=== PATIENT | female | born 1960 | race Caucasian/White ===

== ENCOUNTER 2017-09-26 11:21 | Day surgery (SDC) | payer OTHER ==
[2017-09-26] MEDS ORDERED: LIDOCAINE 1% 2 ML INJ ID PRN (11:37)
[2017-09-26] MEDS ORDERED: LR 1,000 ML IV ONE (11:37)
[2017-09-26] MEDS ORDERED: ceFAZolin 2 GM/SWFI 2 GM/20 ML SYR IVP ONE (12:06)
[2017-09-26] MEDS ORDERED: BACITRACIN 50,000 UNITS/10 ML SYR IRR ONE (12:38)
[2017-09-26] MEDS ORDERED: LIDOCAINE 1% 300 MG/30 ML SDV ONE (12:38)
[2017-09-26] MEDS ORDERED: BUPIVACAINE 0.5% 30 ML SDV ONE (12:38)
[2017-09-26] MEDS ORDERED: MIDAZOLAM 2 MG/2 ML VIAL IVP ONE (12:53)
--- NOTE | 2017-09-26 12:53 | PDANEPAE ---
ANE History of Present Illness 57 yo for hw removal foot ANE Past Medical History - Cardiovascular History Hx Hypertension: No Hx Arrhythmias: No Hx Chest Pain: No Hx Coronary Artery / Peripheral Vascular Disease: No Hx CHF / Valvular Disease: No Hx Palpitations: No Cardiovascular History Comment: HX OF RHUEMATIC FEVER AT 9- CLEAN BILL OF HEALTH AT 20 YEARS OLD - Pulmonary History Hx COPD: No Hx Asthma/Reactive Airway Disease: No Hx Recent Upper Respiratory Infection: No Hx Oxygen in Use at Home: No Hx Sleep Apnea: No Sleep Apnea Screening Result - Last Documented: Negative - Neurologic History Hx Cerebrovascular Accident: No Hx Seizures: No Hx Dementia: No - Endocrine History Hx Diabetes: No Endocrine History Comment: HYPOACTIVE THYROID AND ADRENAL DYSFUNCTION - Renal History Hx Renal Disorders: No - Liver History Hx Hepatic Disorders: No - Neurological & Psychiatric Hx Hx Neurological and Psychiatric Disorders: No - Cancer History Hx Cancer: No - Congenital Disorder History Hx Congenital Disorders: No - GI History Hx Gastrointestinal Disorders: No - Other Health History Other Health History: CHRONIC SINUS ISSUES- ENDING SINUS INFECTION CURRENTLY - Chronic Pain History Chronic Pain: Yes (R FOOT LOWER BACK AND BILATERAL SHOULDERS) - Surgical History Prior Surgeries: THYROIDECTOMY 02/2015. R FOOT SURG. SINUS SURGERY X2. 2010 RECONSTRUCTIVE WRIST SURGERY RIGHT - NO METAL. 1989 HERNIA REPAIR. 1988 HYSTERECTOMY PARTIAL. [id number] 4 EXPLORATORY LAPS. 1983 UTERINE SUSPENSION. [id number] 4 MORE LAPS. T&A CHILD. APPY A CHILD AROUND 6 YEARS AGO. CATARACT REMOVAL 06/2013 AND 06/2012 ANE Review of Systems Review of Systems: - Exercise capacity METS (RN): 5 METS ANE Patient History - Allergies Allergies/Adverse Reactions: No Known Allergies Allergy (Verified 09/26/17 11:46) - Home Medications Home medications: home medication list seen and reviewed Home Medications: [place] Thyroid 09/18/17 [Last Taken 09/26/17 06:30] Estradiol 09/18/17 [Last Taken 09/25/17 22:00] Herbals/Supplements -Info Only 09/18/17 [Last Taken 09/23/17] Ibuprofen 09/18/17 [Last Taken 09/19/17] Maxalt 09/18/17 [Last Taken 09/19/17] Progesterone 09/18/17 [Last Taken 09/25/17 22:00] Testosterone 09/18/17 [Last Taken 09/25/17 06:30] Trazodone HCl 09/18/17 [Last Taken 09/25/17 22:00] - NPO status NPO Status: no food or drink >8 hours NPO Since - Liquids (Date): 09/26/17 NPO Since - Liquids (Time): 06:00 NPO Since - Solids (Date): 09/25/17 NPO Since - Solids (Time): 21:30 - Anes Hx Anes Hx: no prior problems - Smoking Hx Smoking Status: Former smoker - Family Anes Hx Family Hx Anesthesia Complications: MOTHER- HARD TIME RECOVERING TROUBLE WITH NAUSEA AND GI UPSET, TROUBLE WAKING UP ANE Labs/Vital Signs - Vital Signs Blood Pressure: 135/70 Heart Rate: 75 Respiratory Rate: 16 O2 Sat (%): 93 Height: 5 ft 10 in Weight: 106.141 kg ANE Physical Exam - Airway Neck exam: FROM Mallampati Score: Class 2 Mouth exam: normal dental/mouth exam - Pulmonary Pulmonary: no respiratory distress - Cardiovascular Cardiovascular: regular rate and rhythym - ASA Status ASA Status: II ANE Anesthesia Plan Anesthesia Plan: MAC
[2017-09-26] MEDS ORDERED: PROPOFOL/EMULSION 500 MG/50 ML BOTTLE IV ONE (13:08)
--- NOTE | 2017-09-26 13:10 | PDHPUP ---
History & Physical Update H&P update statement: This history and physical update is based on an assessment of the patient which was completed after admission or registration (within 24 hours), but prior to the surgery/procedure. H&P update: H&P reviewed & patient examined (no changes)
[2017-09-26] MEDS ORDERED: ROPIVACAINE HCL 150 MG/30 ML INJ ONE (13:22)
[2017-09-26] MEDS ORDERED: fentaNYL 100 MCG/2 ML INJ ONE ×2 (13:36→15:06)
[2017-09-26] MEDS ORDERED: PROPOFOL 200 MG/20 ML VIAL ONE ×3 (13:54→14:39)
[2017-09-26] MEDS ORDERED: HYDROCODONE/APAP 5/325 TAB PO PRN (13:55)
[2017-09-26] MEDS ORDERED: NALOXONE HCL 0.4 MG/ML INJ IVP PRN (13:55)
[2017-09-26] MEDS ORDERED: ONDANSETRON 4 MG/2 ML VIAL IVP PRN ×2 (13:55→14:59)
[2017-09-26] MEDS ORDERED: oxyCODONE IR 5 MG TAB PO PRN (13:55)
[2017-09-26] MEDS ORDERED: fentaNYL 100 MCG/2 ML INJ IVP PRN (13:55)
[2017-09-26] MEDS ORDERED: OXYCODONE/APAP 5/325 TAB PO PRN (14:59)
--- NOTE | 2017-09-26 15:04 | POSTOPPROG ---
Post Op Note Date of Operation: 09/26/17 Surgeon: Mariah Adams Anesthesiologist: Gael Shukla Pre-op Diagnosis: painful internal hardware first and fifth metatarsals right foot Post-op Diagnosis: same Indication: pain Procedure: Removal of screws x 9, first and fifth metatarsals, right foot Inf/Abcess present in the surg proc area at time of surgery?: No EBL: Minimal Complications: none
[2017-09-26] MEDS ORDERED: HYDROCODONE/APAP 5/325 TAB ONE (15:14)
[2017-09-26 15:58] VITALS: BP 111/52; PULSE 69; RESP 17; TEMP 97.5; O2SAT 93
--- NOTE | 2017-09-26 16:34 | POSTANESTH ---
Post Anesthetic Evaluation Cardiovascular Status: Normal, Stable Respiratory Status: Normal, Stable Level of Consciousness/Mental Status: Can Participate in Eval Pain Control: Adequate, Prn Tx Ordered Nausea/Vomiting Control: Adequate, Prn Tx Ordered Complications Possibly Related to Anesthesia: None Noted
--- NOTE | 2017-09-26 17:00 | GOP ---
[f rep st] OPERATIVE REPORT DATE OF OPERATION: 09/26/2017 SURGEON: Mariah Adams DPM ANESTHESIA: IV sedation with local. ANESTHESIOLOGIST: Rhianna Esparza MD. PREOPERATIVE DIAGNOSIS: Painful internal hardware, painful plate and screws, 1st metatarsal; painful screws, 5th metatarsal; all right foot. POSTOPERATIVE DIAGNOSIS: Painful internal hardware, painful plate and screws, 1st metatarsal; painfu l screws, 5th metatarsal; all right foot. PROCEDURE PERFORMED: Removal of painful internal plate and screws, 1st metatarsal; painful screws, 5 th metatarsal; all right foot. FINDINGS: DESCRIPTION OF PROCEDURE: The patient presented to the hospital approximately an hour and a half konrad or to foot surgery after having been n.p.o. past midnight. The patient's preoperative history and ph ysical reviewed and there are no contraindications to the proposed procedure. The patient was given Ancef 2 g IV 1/2 hour prior to foot surgery. The patient was taken to the OR room and placed on the OR table in a supine position where the approp riate anesthetic agents were administered. This was supplemented with a local block to the right thomas t utilizing a total of 24 cc of a 1:1 mixture of 1% lidocaine with 0.5% Marcaine plain, given in a Ma yo block fashion to the base of the 1st and 5th rays. The right lower extremity was then prepped and draped in usual aseptic fashion, covered with sterile stockinette. A sterile pneumatic ankle tourni quet was applied and padded well underneath with Webril. Utilizing elevation overlying Esmarch patten ge, the right foot was exsanguinated and the tourniquet inflated to a pressure of 225 mmHg. The foot was lowered to the orthopedic table. Attention was then directed to the dorsal aspect of the distal 5th metatarsal, where an approximate 2 cm linear longitudinal incision was made in the same region as the previous skin incision. Incision was deepened through the subcutaneous tissues to the level of the periosteal tissues, taking care to preserve the neurovascular structures. Any bleeders were cauterized as needed. The screw heads wer e identified and the periosteal tissues were reflected off both screw heads. The most distal screw w as removed in the standard fashion and placed on the back table. The more proximal screw head was st ripped, thus, the Dormzy screw retrieval system was utilized and the screw was removed without compli cations. Surgical site was copiously irrigated with sterile saline bacitracin solution. The subcuta neous tissues were reapproximated with 4-0 Monocryl. The skin was reapproximated with 4-0 Prolene ut ilizing interrupted horizontal mattress sutures. Attention was then directed to the dorsal aspect of the 1st metatarsal, where an approximate 4-5 cm i ncision was made along the same line as the past incision line. The incision was deepened through th e subcutaneous tissue to the level of the plate, taking care to preserve the neurovascular structures . Any bleeders were clamped and cauterized as needed. A linear incision was made to the periosteal tissues and periosteal tissues were reflected off the plate to the 1st ray. All 6 screws were remove d from the plate and the plate was from the 1st metatarsal and placed on the back table. A ttention was then directed to the base of the proximal phalanx, where the deep subcutaneous tissues r eflected off the medial aspect, in search of the 4-0 cannulated screw head. The screw head was ident ified. However, due to its location, additional stab incision was made to the medial aspect, more pl mikayla so as to have better access to retrieve the screw. The periosteal tissues were reflected off t he screw head and the utilizing the standard screw drop hammer pile driver operator, approximately 1/3 of the screw was removed , then the screw head became stripped. Thus, the Dormzy screw removal set was utilized for the final extraction of the screw. The screw was taken out in 1 piece. The surgical sites were copiously irr igated with sterile saline bacitracin solution. The periosteal tissues were reapproximated with 3-0 Vicryl. Subcutaneous tissues reapproximated with 4-0 Monocryl. The skin was reapproximated with 4-0 Prolene utilizing interrupted horizontal mattress sutures. It should be mentioned prior to closure, the tourniquet was released. There was immediate capillary refill to all digits and there was hemos tasis. Additional 6 cc of ropivacaine 0.5% was given proximal to the surgical sites. A mildly compr essive dry sterile gauze dressing was applied with Xeroform, 4 x 4 gauze, Tre, and then an Joseph wrap . Patient tolerated the procedures and anesthesia well, transferred to recovery room with vital signs s table and vascular status intact to the extremity. In the recovery room, the patient received postop erative oral and written home care instructions. The patient was dispensed a cryo Cuff, instructed o n its usage. She is to wear the Darco shoe when ambulating. The patient had been already given a pr escription for postoperative pain medication. The patient is to follow up in the office in 3-4 days, but to call the office earlier if any questions or problems should arise. It should be mentioned th at once the plate was removed from the 1st metatarsal, the fusion site was evaluated and there was co mplete fusion and consolidation of the bone. /[id number]/MODL
== END 2017-09-26 16:30 | disposition home or self-care (01) ==
LOC: FSGY 11:21
PROVIDERS: ATTEND Podiatrist
PROC: 0QPN04Z Removal of Internal Fixation Device from Right Metatarsal, Open Approach (ICD-10-PCS; principal; 2017-09-26 13:00)
DX: T84.84XA Pain due to internal orthopedic prosthetic devices, implants and grafts, initial encounter (principal); Y79.2 Prosthetic and other implants, materials and accessory orthopedic devices associated with adverse incidents; M79.671 Pain in right foot; M79.2 Neuralgia and neuritis, unspecified; G43.909 Migraine, unspecified, not intractable, without status migrainosus; E03.9 Hypothyroidism, unspecified; Z86.19 Personal history of other infectious and parasitic diseases; Z87.891 Personal history of nicotine dependence
CPT/HCPCS: J0690; J2250; J2704; J2795; J3010